=== PATIENT | female | born 1940 | race Caucasian/White ===

== ENCOUNTER 2018-07-28 14:04 | Emergency (ER) | payer MEDICARE, OTHER ==
[2018-07-28] MEDS ORDERED: HYDROcod/ACETAM 5/325 MG TABLET PO STA (14:51)
--- NOTE | 2018-07-28 14:53 | ED Physician Documentation ---
PD HPI LOWER EXT INJURY - Stated complaint Stated Complaint: R SIDE PX/GLF - Chief complaint Chief Complaint: Ext Problem - History obtained from History obtained from: Patient - History of Present Illness PD HPI LOW EXT INJURY LOCATION: Right Type of injury: Fall (slip while feeding her horses onto frozen ground) Where injury occurred: Home Timing - onset: How many days ago (6 days) Timing - details: Other (Worse on Tuesday, then got better, now worse again) Review of Systems Constitutional: reports: Reviewed and negative Nose: reports: Reviewed and negative Cardiac: reports: Reviewed and negative Respiratory: reports: Reviewed and negative PD PAST MEDICAL HISTORY - Past Medical History FORM SETTER/DRIVER: Breast cancer - Past Surgical History Past Surgical History: Yes HEENT: Tonsil/Adenoidectomy - Present Medications Home Medications: Ambulatory Orders Medication Instructions Recorded Confirmed Hydrocodone/Acetaminophen 1 - 2 tab PO Q4-6H PRN #15 tablet 03/23/14 [Hydrocodon-Acetaminophen 5-325] Letrozole [Femara] 2.5 mg PO DAILY 03/23/14 03/23/14 Venlafaxine ER [Effexor ER] 75 mg PO DAILY 03/23/14 03/23/14 Hydrocodone/Acetaminophen 1 - 2 each PO Q6H PRN #20 tablet 07/28/18 [Hydrocodon-Acetaminophen 5-325] - Allergies Allergies/Adverse Reactions: Allergies Allergy/AdvReac Type Severity Reaction Status Date / Time No Known Drug Allergies Allergy Verified 03/23/14 13:51 - Social History Does the pt smoke?: No Smoking Status: Never smoker Does the pt drink ETOH?: No Does the pt have substance abuse?: No - Immunizations Immunizations are current?: Yes - POLST Patient has POLST: No PD ED PE NORMAL - Vitals Vital signs reviewed: Yes - General General: Alert and oriented X 3, No acute distress - Extremities Extremities: Other (Mild TTP over R lateral hip, walks with a limp but able to bear weight. No pain with int/ext rotation of R leg.) - Neuro Neuro: Alert and oriented X 3, Normal speech Results - Vitals Vitals: Vital Signs - 24 hr 07/28/18 07/28/18 14:10 15:37 Temperature 36.2 C L 36.6 C Heart Rate 77 73 Respiratory 18 18 Rate Blood Pressure 143/89 H 120/86 H O2 Saturation 96 93 Oxygen O2 Source Room air - Rads (name of study) R hipXR Radiology: EMP read contemporaneously (neg) PD MEDICAL DECISION MAKING - ED course ED course: Clinically this is unlikely to be a hip fracture, more consistent with a trochanteric bursitis that is traumatic. She is able to walk and bear weight and has minimal pain with internal and external rotation of the hip. She felt comfortable following up with orthopedics next week and has a walker. She also needed refill of pain medication. Departure - Departure Disposition: Home, Self Care Clinical Impression: Contusion of right hip Qualifiers: Encounter type: initial encounter Qualified Code(s): S70.01XA - Contusion of right hip, initial encounter Condition: Good Record reviewed to determine appropriate education?: Yes Follow-Up: Keshawn Chávez MD [Provider Admit Priv/Credential] - Prescriptions: Hydrocodone/Acetaminophen [Hydrocodon-Acetaminophen 5-325] 1 - 2 each PO Q6H PRN #20 tablet PRN Reason: pain Comments: You can ambulate with the use of the walker. Return for new or worsening symptoms and follow-up with Dr. Chávez next week, call Tuesday for an appointment.
--- NOTE | 2018-07-28 15:27 | XRAY Report ---
Reason: GLF, rt hip pain Procedure Date: 07/28/2018 Accession Number: [id number] / [id number] Procedure: XR - Hip w/Pelvis 2-3V RT CPT Code: FULL RESULT: EXAM: RIGHT HIP AND PELVIS RADIOGRAPHY EXAM DATE: 07/28/2018 03:16 PM. HISTORY: GLF, right hip pain. COMPARISONS: None. TECHNIQUE: 1 view of the pelvis and 1 view of the hip. FINDINGS: Bones: Normal. No fracture or bone lesion. Joints: The bilateral hip joints demonstrate relatively symmetric narrowing, moderate in degree. The pubis symphysis, and sacroiliac joints are preserved. Soft Tissues: Normal. No soft tissue swelling. IMPRESSION: No acute fracture or dislocation is identified. [facility]
[2018-07-28 15:37] VITALS: BP 120/86
== END 2018-07-28 16:09 | disposition home or self-care (01) ==
LOC: ED 14:04
DX: S70.01XA Contusion of right hip, initial encounter (principal); W00.0XXA Fall on same level due to ice and snow, initial encounter; Y93.89 Activity, other specified; Y92.009 Unspecified place in unspecified non-institutional (private) residence as the place of occurrence of the external cause
CPT/HCPCS: 73502; 99283; A9270

== ENCOUNTER 2018-08-25 13:05 | Outpatient (CLI) | payer MEDICARE, OTHER ==
--- NOTE | 2018-08-25 16:37 | MRI Report ---
Reason: HIP JOINT PAIN,RIGHT Procedure Date: 08/25/2018 Accession Number: [id number] / [id number] Procedure: MRI - Hip RT W/O CPT Code: FULL RESULT: EXAM: RIGHT HIP MRI WITHOUT CONTRAST EXAM DATE: 08/25/2018 02:08 PM. CLINICAL HISTORY: Right hip joint pain. COMPARISON: Pelvis 3 views 08/14/2018. TECHNIQUE: Multiplanar, multisequence T1-weighted and fluid-sensitive, small jyekz-by-fsku sequences of the hip and large zbvps-bn-[id number] sequences of the pelvis without contrast. Other: None. FINDINGS: Bones: Nondisplaced fractures through the superior and inferior pubic ramus on the right. Sagittally oriented nondisplaced fracture through the right sacral ala. Some patchy areas of mixed T1 and T2 signal in the iliac wings and lumbar spine. Right Hip: No acetabular retroversion. Femoral head/neck offset is within normal limits. No effusion or loose bodies. The articular cartilage is intact. The labrum is unremarkable on this nonarthrographic study. The ligamentum teres is intact. Other Joints: The visualized lumbar spine, sacroiliac joints, symphysis pubis, and contralateral hip are unremarkable. Musculature: Small amount of adjacent edema is seen in the obturator internus and obturator externus muscle. The gluteus medius and minimus tendons are normal. The visualized hamstring tendons are normal. The ischiofemoral space is normal. Pelvic Cavity: The visualized viscera are unremarkable. No lymphadenopathy. No free fluid in the pelvis. Other: The visualized sciatic nerves are unremarkable. No bursitis. The subcutaneous tissues are unremarkable. IMPRESSION: 1. Nondisplaced fractures through the superior and inferior pubic ramus on the right. 2. Sagittally oriented nondisplaced fracture of the right sacral ala. 3. Some adjacent muscular edema in the obturator internus and obturator externus muscles. [facility] MUSCULOSKELETAL RADIOLOGY SECTION
== END 2018-08-25 13:06 | disposition home or self-care (01) ==
LOC: DI 13:05
PROVIDERS: ATTEND Orthopaedic Surgery Sports Medicine
DX: S32.591A Other specified fracture of right pubis, initial encounter for closed fracture (principal); S32.511A Fracture of superior rim of right pubis, initial encounter for closed fracture; S32.19XA Other fracture of sacrum, initial encounter for closed fracture

== ENCOUNTER 2019-03-21 14:27 | Outpatient (CLI) | payer MEDICARE, OTHER | END 2019-03-21 14:28 | disposition home or self-care (01) | LOC: LAB 14:27 | PROVIDERS: ATTEND Internal Medicine | DX: F33.2 Major depressive disorder, recurrent severe without psychotic features (principal) | CPT/HCPCS: 36415; 80299; 81599 ==

== ENCOUNTER 2019-03-30 07:19 | Outpatient (CLI) | payer MEDICARE, OTHER | END 2019-03-30 07:20 | disposition critical access hospital (66) | LOC: EMS 07:19 | PROVIDERS: ATTEND Surgery | DX: H57.12 Ocular pain, left eye (principal); R11.2 Nausea with vomiting, unspecified | CPT/HCPCS: A0425; A0427 ==

== ENCOUNTER 2019-03-30 07:42 | Emergency (ER) | payer MEDICARE, OTHER ==
--- NOTE | 2019-03-30 08:14 | ED Physician Documentation ---
PD HPI OPHTHO - Stated complaint Stated Complaint: LEFT EYE PAIN - Chief complaint Chief Complaint: Heent - History obtained from History obtained from: Patient, EMS - History of Present Illness Timing - onset: How many days ago (5) Timing - duration: Days (5) Timing - details: Still present Location: Left Quality / character: Other (pain) Contributing factors: Wears contacts, Other (Cataract surgery 6 weeks ago.) Similar symptoms before: Has not had sx before - Additional information Additional information: The patient is a 79-year-old female who arrives via ambulance complaining of pain in her left eye. She is 6 weeks status post left cataract surgery. She began experiencing pain in her left eye 5 days ago. She was seen by an retail department manager 3 days ago. At that time her eye was dilated and she reports the "retina appeared fine." Prednisone ophthalmic drops were prescribed at that time. She presents this morning because of increased pain with associated vomiting. She denies any change in her visual acuity. She denies headache. The pain is worse with movement of her eye or with touching the skin around her eye. Paramedics have administered fentanyl 150 mcg IV and Zofran 4 mg IV. The patient normally wears glasses, but she did not bring them with her this morning. Review of Systems Constitutional: denies: Fever Eyes: reports: Irritation. denies: Decreased vision, Photophobia, Discharge Ears: denies: Ear pain, Tinnitus/ringing Nose: denies: Congestion Throat: denies: Sore throat Cardiac: denies: Chest pain / pressure Respiratory: denies: Dyspnea, Cough GI: reports: Nausea, Vomiting. denies: Abdominal Pain Skin: denies: Rash Musculoskeletal: denies: Neck pain Neurologic: denies: Focal weakness, Numbness, Headache PD PAST MEDICAL HISTORY - Past Medical History Cardiovascular: Hypertension Endocrine/Autoimmune: None SOLAR INSTALLER PV: Breast cancer Psych: Depression - Past Surgical History Past Surgical History: Yes /SOLAR INSTALLER PV: Mastectomy HEENT: Tonsil/Adenoidectomy - Present Medications Home Medications: Ambulatory Orders Medication Instructions Recorded Confirmed Venlafaxine ER [Effexor ER] 75 mg PO DAILY 03/23/14 03/23/14 Estrogen Suppressor 03/30/19 Hydrochlorothiazide 12.5 mg PO 03/30/19 Ondansetron Odt [Zofran] 4 mg TL Q6H PRN #10 tablet 03/30/19 Oxycodone HCl/Acetaminophen 1 - 2 each PO Q6H PRN #14 tablet 03/30/19 [Percocet 5-325 mg Tablet] Valacyclovir HCl [Valacyclovir] 1,000 mg PO TID #20 tablet 03/30/19 amLODIPine [Norvasc] 5 mg PO ONCE 03/30/19 03/30/19 - Allergies Allergies/Adverse Reactions: Allergies Allergy/AdvReac Type Severity Reaction Status Date / Time No Known Drug Allergies Allergy Verified 03/30/19 07:48 - Social History Does the pt smoke?: No Smoking Status: Never smoker Does the pt drink ETOH?: No Does the pt have substance abuse?: No - Immunizations Immunizations are current?: Yes - POLST Patient has POLST: No PD ED PE NORMAL - Vitals Vital signs reviewed: Yes (hypertensive initially) - General General: Alert and oriented X 3, Well developed/nourished - HEENT HEENT: Atraumatic, EOMI, Other (Pupils 3 mm, reactive; tonometry reveals IOP of 20 in left eye.) - Neck Neck: Supple, no meningeal sign, No adenopathy - Cardiac Cardiac: RRR - Respiratory Respiratory: No respiratory distress - Derm Derm: Other (Faint red spots left periorbital region, with associated tenderness to palpation.) - Extremities Extremities: No edema - Neuro Neuro: Alert and oriented X 3, No motor deficit, Normal speech Results - Vitals Vitals: Vital Signs - 24 hr 03/30/19 03/30/19 03/30/19 07:45 08:15 08:16 Temperature 36.2 C L Heart Rate 76 Respiratory 16 Rate Blood Pressure 140/100 H O2 Saturation 97 78 L 92 03/30/19 10:55 Temperature Heart Rate 72 Respiratory 16 Rate Blood Pressure 137/84 H O2 Saturation 98 Oxygen O2 Source Room air PD MEDICAL DECISION MAKING - ED course Complexity details: re-evaluated patient, considered differential, d/w patient ED course: The cause of the patient's left eye pain is not certain at this time, but herpes zoster is a likely diagnosis given the nature of the discomfort with the mere touching of the skin around her left eye in the distribution of the ophthalmic branch of the trigeminal nerve. There is no appearance of vesicles currently, but there are small erythematous macules in this distribution. There is no evidence on examination to suggest conjunctivitis, uveitis, glaucoma, or corneal abrasion. Treatment in the emergency department included administration of oxycodone 5 mg orally and Zofran 4 mg sublingually. I discussed her presentation with Dr. Wood, her counter top maker in [place], who agrees with outpatient follow-up. At the time of discharge the patient continued to express concern that something more serious was causing her discomfort. I discussed her condition with Dr. Galloway, local counter top maker who agreed to see the patient and his office at this time. The patient was discharged from the emergency department, but was taken directly by wheelchair for ophthalmologic evaluation by Dr. Galloway. She was discharged with prescriptions for valacyclovir, Phenergan, and Percocet, 14 tablets. Departure - Departure Disposition: 01 Home, Self Care Clinical Impression: Herpes zoster Qualifiers: Herpes zoster complications: unspecified herpes zoster complication Qualified Code(s): B02.8 - Zoster with other complications Condition: Stable Instructions: ED Shingles Follow-Up: Adrien Flower MD [Physician No Access] - Brian Senior MD [Provider Admit Priv/Credential] - Prescriptions: Ondansetron Odt [Zofran] 4 mg TL Q6H PRN #10 tablet PRN Reason: Nausea / Vomiting Oxycodone HCl/Acetaminophen [Percocet 5-325 mg Tablet] 1 - 2 each PO Q6H PRN #14 tablet PRN Reason: pain Valacyclovir HCl [Valacyclovir] 1,000 mg PO TID #20 tablet Comments: Go directly to the ophthalmology office, where you will see Dr. Galloway. Take valacyclovir 3 times daily as prescribed. You can use ibuprofen, up to 800 mg 3 times daily for anti-inflammatory effect. You can use Zofran as prescribed if needed for nausea. You can use Percocet as prescribed if needed for pain. Follow-up with your retail department manager or your counter top maker within 1 week. Call to schedule an appointment. Return to the emergency department if you develop increasing pain or swelling of your eye, or otherwise worsening symptoms. Discharge Date/Time: 03/30/19 11:40
[2019-03-30] MEDS ORDERED: ACYCLOVIR 200 MG CAPSULE PO STA (10:15)
[2019-03-30] MEDS ORDERED: oxyCODONE 5 MG TABLET PO STA (10:21)
[2019-03-30] MEDS ORDERED: ONDANSETRON ODT 4 MG TABLET TL STA (10:21)
[2019-03-30] MEDS ORDERED: PROMETHAZINE 25 MG/1 ML VIAL IM STA (10:54)
[2019-03-30 10:56] VITALS: BP 137/84
== END 2019-03-30 11:40 | disposition home or self-care (01) ==
LOC: EDUNIT# → ED 07:42
DX: B02.8 Zoster with other complications (principal); Z98.42 Cataract extraction status, left eye; R11.2 Nausea with vomiting, unspecified; I10 Essential (primary) hypertension
CPT/HCPCS: 96372; 99284; 99285

== ENCOUNTER 2019-03-30 15:16 | Emergency (ER) | payer MEDICARE, OTHER ==
[2019-03-30] MEDS ORDERED: fentaNYL 100 MCG/2 ML VIAL IVP STA (16:32)
[2019-03-30] MEDS ORDERED: PROCHLORPERAZINE 10 MG/2 ML VIAL IVP STA (16:32)
[2019-03-30] MEDS ORDERED: diphenhydrAMINE INJ 50 MG/ML VIAL IVP STA (16:33)
[2019-03-30] MEDS ORDERED: KETOROLAC 30 MG/ML VIAL IVP STA (16:33)
[2019-03-30 16:58] LABS: BASOPHILS % (AUTO) 0.4 %; EOSINOPHILS % (AUTO) 0.2 %; HGB - HEMOGLOBIN 15.7 g/dL (12.0-16.0); LYMPHOCYTES # (AUTO) 0.8 10^3/uL (1.5-3.5); LYMPHOCYTES % (AUTO) 18.3 %; MEAN CORPUSCULAR HEMOGLOBIN 30.5 pg (27.0-31.0); MEAN CORPUSCULAR HGB CONC 33.7 g/dL (32.0-36.0); MEAN CORPUSCULAR VOLUME 90.7 fL (81.0-99.0); MEAN PLATELET VOLUME 9.9 fL (7.9-10.8); MONOCYTES # (AUTO) 0.1 10^3/uL (0.0-1.0); MONOCYTES % (AUTO) 2.9 %; NEUTROPHILS # (AUTO) 3.5 10^3/uL (1.5-6.6); NEUTROPHILS % (AUTO) 77.8 %; PLT - PLATELET COUNT 229 10^3/uL (130-450); RED BLOOD COUNT 5.14 10^6/uL (4.20-5.40); RED CELL DISTRIBUTION WIDTH 13.7 % (12.0-15.0); WHITE BLOOD COUNT 4.5 x10^3/uL (4.8-10.8)
--- NOTE | 2019-03-30 17:11 | CT Report ---
Reason: headache, left eye pain Procedure Date: 03/30/2019 Accession Number: [id number] / [id number] Procedure: CT - HEAD WO CPT Code: FULL RESULT: EXAM: CT HEAD EXAM DATE: 03/30/2019 04:44 PM. CLINICAL HISTORY: Headache, left eye pain. COMPARISON: None. TECHNIQUE: Multiaxial CT images were obtained from the foramen magnum to the vertex. Reformats: Sagittal and coronal. IV contrast: None. In accordance with CT protocol optimization, one or more of the following dose reduction techniques were utilized for this exam: automated exposure control, adjustment of mA and/or KV based on patient size, or use of iterative reconstructive technique. FINDINGS: Parenchyma: No intraparenchymal hemorrhage. No evidence of mass, midline shift, or CT findings of infarction. [place]-white differentiation is distinct. Extraaxial Spaces: Normal for age. No subdural or epidural collections identified. Ventricles: Normal in size and position. Sinuses and Orbits: Visualized portions of the paranasal sinuses, orbits, and mastoids show no significant abnormality. Bones: No evidence of fracture or calvarial defect. Other: None. IMPRESSION: Normal head CT. [facility]
--- NOTE | 2019-03-30 17:36 | CT Report ---
Reason: left ocular pain with eye movement Procedure Date: 03/30/2019 Accession Number: [id number] / [id number] Procedure: CT - ORBITS WO CPT Code: FULL RESULT: EXAM: CT ORBITS WITHOUT CONTRAST EXAM DATE: 03/30/2019 04:44 PM. CLINICAL HISTORY: Left ocular pain with eye movement. Headache and left eye pain for 2 days. No known trauma. COMPARISONS: HEAD W/O 03/30/2019 4:41 PM. TECHNIQUE: Thin-section axial images were acquired of the orbits without contrast. Post-processing: Coronal and sagittal reformats. Other: None. In accordance with CT protocol optimization, one or more of the following dose reduction techniques were utilized for this exam: automated exposure control, adjustment of mA and/or KV based on patient size, or use of iterative reconstructive technique. FINDINGS: Soft Tissue: No preseptal periorbital soft tissue swelling is appreciated. The visualized infratemporal fossa, parapharyngeal spaces, photography professor spaces, and pterygopalatine fossa are unremarkable. Orbits: Symmetric and unremarkable. Note is made of bilateral lens removal. No intraconal or extraconal mass or fluid collection is seen. Bones: No fracture or bone lesion. Temporomandibular Joints: Moderate hypertrophic and erosive degenerative changes seen at the TMJ bilaterally. Sinuses: Partially visualized paranasal sinuses and mastoid air cells are clear without acute sinusitis. Other: None. IMPRESSION: 1. Unremarkable noncontrast CT scan of the orbits. No post septal mass or fluid collection is appreciated. 2. Moderate degenerative changes seen in the TMJ bilaterally. [facility]
--- NOTE | 2019-03-30 17:54 | ED Physician Documentation ---
PD HPI OPHTHO - Stated complaint Stated Complaint: LEFT EYE PAIN - Chief complaint Chief Complaint: Neuro - History obtained from History obtained from: Patient - History of Present Illness Timing - onset: How many days ago (5) Timing - details: Still present Location: Left Recently seen: Emergency Dept (earlier today) - Additional information Additional information: The patient is a 79-year-old female who presents with pain in her left eye, ongoing for the past 5 days. She was seen in the emergency department this morning by myself, and there was no evidence of conjunctival abrasion, foreign body, iritis, or glaucoma. She had slight erythematous papules on her lids with associated tenderness to even slight touching, suggestive of early onset of shingles, but without vesicular eruption yet occurring. She reported undergoing cataract surgery 6 weeks ago. At the time of discharge from the emergency department she was taken by wheelchair over to [facility] where she was evaluated by the cardiology technologist. In my later discussion with the cardiology technologist, Dr. Galloway, I was told that her pain may be related to mild postoperative keratopathy. She returns to the emergency department now out of concern for ongoing pain with associated nausea. She also reports headache, which she had previously denied. She denies fever or vomiting. Review of Systems Constitutional: denies: Fever Eyes: reports: Irritation (left eye). denies: Decreased vision Ears: denies: Ear pain Nose: denies: Congestion Throat: denies: Sore throat Cardiac: denies: Chest pain / pressure Respiratory: denies: Dyspnea, Cough GI: denies: Abdominal Pain, Nausea, Vomiting Skin: denies: Rash Musculoskeletal: denies: Neck pain Neurologic: reports: Headache. denies: Focal weakness, Numbness PD PAST MEDICAL HISTORY - Past Medical History Cardiovascular: Hypertension Endocrine/Autoimmune: None HOST HOSTESS: Breast cancer Psych: Depression - Past Surgical History Past Surgical History: Yes /HOST HOSTESS: Mastectomy HEENT: Tonsil/Adenoidectomy - Present Medications Home Medications: Ambulatory Orders Medication Instructions Recorded Confirmed Venlafaxine ER [Effexor ER] 75 mg PO DAILY 03/23/14 03/23/14 Estrogen Suppressor 03/30/19 Hydrochlorothiazide 12.5 mg PO 03/30/19 Ondansetron Odt [Zofran] 4 mg TL Q6H PRN #10 tablet 03/30/19 Oxycodone HCl/Acetaminophen 1 - 2 each PO Q6H PRN #14 tablet 03/30/19 [Percocet 5-325 mg Tablet] Valacyclovir HCl [Valacyclovir] 1,000 mg PO TID #20 tablet 03/30/19 amLODIPine [Norvasc] 5 mg PO ONCE 03/30/19 03/30/19 - Allergies Allergies/Adverse Reactions: Allergies Allergy/AdvReac Type Severity Reaction Status Date / Time No Known Drug Allergies Allergy Verified 03/30/19 07:48 - Social History Does the pt smoke?: No Smoking Status: Never smoker Does the pt drink ETOH?: No Does the pt have substance abuse?: No - Immunizations Immunizations are current?: Yes - POLST Patient has POLST: No PD ED PE NORMAL - Vitals Vital signs reviewed: Yes (hypertensive) - General General: Alert and oriented X 3, Well developed/nourished - HEENT HEENT: Atraumatic, PERRL, EOMI, Pharynx benign - Neck Neck: Supple, no meningeal sign, No adenopathy - Cardiac Cardiac: RRR - Respiratory Respiratory: No respiratory distress, Clear bilaterally - Abdomen Abdomen: Soft, Non tender - Back Back: No CVA TTP - Derm Derm: No rash - Extremities Extremities: No edema, No calf tenderness / cord - Neuro Neuro: Alert and oriented X 3, No motor deficit, No sensory deficit Eye Opening: Spontaneous Motor: Obeys Commands Verbal: Oriented GCS Score: 15 Results - Vitals Vitals: Oxygen O2 Source Room air - Labs Labs: Laboratory Tests 03/30/19 03/30/19 16:50 16:50 WBC 4.5 L RBC 5.14 Hgb 15.7 Hct 46.6 MCV 90.7 MCH 30.5 MCHC 33.7 RDW 13.7 Plt Count 229 MPV 9.9 Neut # (Auto) 3.5 Lymph # (Auto) 0.8 L [place] # (Auto) 0.1 Eos # (Auto) 0.0 Baso # (Auto) 0.0 Absolute Nucleated RBC 0.00 Nucleated RBC % 0.0 ESR 3 - Rads (name of study) Head CT Radiology: Prelim report reviewed, EMP read contemporaneously, See rad report (Normal head CT.) CT orbits Radiology: Prelim report reviewed, EMP read contemporaneously, See rad report (1) Unremarkable noncontrast CT scan of the orbits. No post septal mass or fluid collection is appreciated. 2) Moderate degenerative changes seen in the TMJ bilateral.) PD MEDICAL DECISION MAKING - ED course Complexity details: reviewed old records, reviewed results, re-evaluated patient, considered differential, d/w patient, d/w internet consultant ED course: Given the severity of the patient's pain and her ongoing concerns, a CT scan of her head and her orbits was ordered to rule out the possibility of intracranial or periocular cause for the patient's symptoms. CT scan of the head is normal, as is CT scan of the orbits. Treatment in the emergency department included administration of Compazine 10 mg IV, Benadryl 25 mg IV, Toradol 30 mg IV, and fentanyl 100 g IV. The patient's symptoms completely resolved with the above treatment. I discussed with her and her female associate juvenile court judge the results of the workup, advised filling the prescriptions that had been written for this morning, advised outpatient follow-up with her cardiology technologist, as well as potentially worrisome signs or symptoms that should prompt reevaluation in the emergency department. Departure - Departure Disposition: 01 Home, Self Care Clinical Impression: Acute left eye pain Condition: Stable Instructions: ED Acute Pain [facility] Follow-Up: Brian Senior MD [Provider Admit Priv/Credential] - Adrien Flower MD [Physician No Access] - Comments: Fill the prescription that was written for you earlier today. Follow-up with your primary physician or with your cardiology technologist within 1 week. Call to schedule appointment. Return to the emergency department if you develop increasing pain, impairment of your vision, persistent vomiting, or otherwise worsening symptoms. Discharge Date/Time: 03/30/19 18:13
[2019-03-30 18:14] VITALS: BP 140/90
== END 2019-03-30 18:13 | disposition home or self-care (01) ==
LOC: ED 15:16
DX: H57.12 Ocular pain, left eye (principal); Z98.42 Cataract extraction status, left eye; R51 Headache; R11.2 Nausea with vomiting, unspecified; B02.8 Zoster with other complications; I10 Essential (primary) hypertension
CPT/HCPCS: 36415; 70450; 70480; 85025; 85651; 96372; 96374; 99284; 99285; A9270; J1200; Q0162